=== PATIENT | female | born 1970 | race Caucasian/White ===

== ENCOUNTER → 2024-05-08 06:34 | Outpatient (REF) | payer BC, SELFPAY ==
[2024-05-08 09:51] LABS: Urine Albumin Negative (Neg - Trace); Urine Bilirubin Negative (Negative); Urine Character Slightly Cloudy (Clear); Urine Color Yellow; Urine Glucose Negative (Negative); Urine Ketone Negative (Negative); Urine Leukocyte 1+ (Negative); Urine Nitrite Negative (Negative); Urine Occult Blood Negative (Negative); Urine Urobilinogen Negative (Neg - 1+)
[2024-05-08 09:55] LABS: % Basophils 0.5 % (0-2); % Eosinophils 1.5 % (0-6); % Immature Granulocytes 0.3 % (0-0.5); % Lymphocytes 24.9 % (20.5-51.1); % Monocytes 5.4 % (1.7-9.3); % Neutrophils 67.4 % (42.2-75.2); Absolute Eosinophils 0.1 10^3/uL (0-0.7); Absolute Lymphocytes 1.8 10^3/uL (1.2-3.4); Absolute Monocytes 0.4 10^3/uL (0.1-0.6); Hematocrit 39.8 % (37.0-47.0); Hemoglobin 13.2 g/dL (12.0-16.0); Mean Corp Hgb Conc. 33.2 g/dL (33.0-37.0); Mean Corpuscular Hgb 26.3 pg (27.0-31.0); Mean Corpuscular Volume 79.4 fL (81.0-99.0); Mean Platelet Volume 10.7 fL (7.4-10.4); Nucleated Red Blood Cells % 0 %; Platelet Count 322 10^3/uL (130-400); Red Blood Cell Count 5.01 10^6/uL (4.20-5.40); Red Cell Dist. Width 13.6 % (11.5-14.5); White Blood Cell Count 7.4 10^3/uL (4.8-10.8)
[2024-05-08 10:05] LABS: Urine Squamous Cell >30 /LPF (Few)
[2024-05-08 10:06] LABS: Urine Bacteria Moderate (Negative)
[2024-05-08 10:08] LABS: Urine Red Blood Cell None Seen /HPF (0-2)
[2024-05-08 10:43] LABS: Free T4 1.21 ng/dl (0.78-2.19)
[2024-05-08 10:53] LABS: ALT (SGPT) 30 U/L (0-35); AST (SGOT) 34 U/L (14-36); Albumin 4.1 g/dl (3.5-5.0); Alkaline Phosphatase 56 U/L (38-126); Blood Urea Nitrogen 10 mg/dl (7-17); Calcium 8.7 mg/dl (8.4-10.2); Carbon Dioxide 22 mmol/L (22-30); Chloride 102 mmol/L (98-107); Glucose 105 mg/dl (70-99); HDL Cholesterol 49 mg/dl; Iron 120 ug/dl (37-170); LDL Cholesterol, Calculated 96 mg/dl; Potassium 4.6 mmol/L (3.5-5.1); Sodium 134 mmol/L (135-145); Total Bilirubin 0.2 mg/dl (0.2-1.3); Total Cholesterol 184 mg/dl (50-199); Total Protein 6.8 g/dl (6.3-8.2); Triglyceride 197 mg/dl (10-149); Very Low Density Lipoprotein 39 mg/dl (0-30); eGFR > 60.00
[2024-05-08 10:57] LABS: TSH 1.32 uIU/ml (0.47-4.68)
[2024-05-08 11:02] LABS: Percent Saturation 33 % (20-50); Total Iron Binding Capacity 355 ug/dl (265-497)
[2024-05-08 11:46] LABS: Ferritin 84.2 ng/ml (11.1-264.0)
[2024-05-08 12:17] LABS: Folate 10.9 ng/ml (2.76-20); Vitamin B12 339 pg/ml (239-931)
== END ==
LOC: HWLAB 06:34
PROVIDERS: ATTENDING PHYSICIAN Nurse Practitioner Family
DX: F41.1 Generalized anxiety disorder (principal); E55.9 Vitamin D deficiency, unspecified; D64.9 Anemia, unspecified
CPT/HCPCS: 36415; 80053; 80061; 81003; 81015; 82306; 82607; 82728; 82746; 83540; 83550; 84439; 84443; 85025

== ENCOUNTER 2025-01-11 16:38 | Day surgery (SDC) | payer BC, SELFPAY ==
[2025-01-11 12:34] VITALS: BP 135/88
--- NOTE | 2025-01-11 12:57 | ED.GENMED ---
History of Present Illness
<Brianne Anderson PA-C - Last Filed: 01/11/25 16:21>
General
Chief Complaint: Chest Pain
Source: patient
Exam Limitations: none
Time Seen by Provider: 01/11/25 12:48
Nursing documentation reviewed up to this point in time: agreed with
History of Present Illness
History of Present Illness:
see MDM
Past History
<MABEL Levy Last Filed: 01/11/25 16:21>
Past History
ED Past Medical History: Psychiatric
Social History
Tobacco: Non-smoker
Alcohol: None
Review of Systems
<MABEL Levy Last Filed: 01/11/25 16:21>
Review of Systems
Allergies reviewed?: Yes
All Other Systems: Not applicable
Phy Exam
<MABEL Levy Last Filed: 01/11/25 16:21>
Physical Exam
Physical Exam:
GENERAL: Alert , in no apparent distress
EYE: pupils equal and reactive
NECK: Supple
ENT: o/p clr, mmm.
CARDIAC: Regular rate and rhythm .
LUNGS: Clear breath sounds bilaterally, no acute respiratory distress, no wheezes/rales/rhonchi
chest wall: mild sternal tenderness, normal skin inspection
ABDOMEN: Soft, moderate RUQ tendenress, epigastric tendenress, no r/g, no cvat, normal bowel sounds
NEUROLOGICAL: Alert and oriented, no focal neuro deficits
SKIN: Warm and dry, skin intact.
MUSCULOSKELETAL: No edema, well perfused. neg she's sign
neg she's sign
PSYCH: Normal and appropriate interaction.
Scores
<MABEL Levy Last Filed: 01/11/25 16:21>
Heart Score for Chest Pain Patients
STEMI patient?: No
History: Slightly or Non-Suspicious
ECG: Normal
Age: >45 - <65 years
Risk Factors: No Risk Factors
Troponin: </= Normal Limit
Heart Score for Chest Pain Patients: 1
Heart Score Risk: 2.5% MACE over next 6 weeks
<Marycarmen Dillon MD - Last Filed: 01/11/25 16:33>
Heart Score for Chest Pain Patients
Heart Score for Chest Pain Patients: 1
Heart Score Risk: 2.5% MACE over next 6 weeks
Course
<Brianne Anderson PA-C - Last Filed: 01/11/25 16:21>
Orders/Labs/Results
Orders:
Orders
01/11/25 12:32
Electrocardiogram (*1) Urgent
Reason for Study: Chest Pain
EKG- Treatment ONCE
01/11/25 13:10
Famotidine [Pepcid] 20 mg IV NOW STA
Ketorolac [Toradol] 30 mg IV NOW STA
US Abdomen Complete/Upper Urgent
Comment:
Reason For Exam: upper abd pain RUQ tend
01/11/25 13:11
Complete Blood Count/With Diff Urgent
Comprehensive Metabolic Panel Urgent
Lipase Urgent
Troponin I Urgent
CR Chest - 2 Views Urgent
Comment:
Reason For Exam: chest heaviness
01/11/25 13:13
Add On- LAB Urgent
Tests Added?: lipase
01/11/25 15:58
Ampicillin/Sulbactam 3 G [Unasyn] 3 gm 0.9% Sodium Chloride 100 ml [Nss] 100 ml IV NOW
01/11/25 16:20
Admit/Transfer Patient As Directed
Co-Sign Provider:
Level of Care: Observation services
Assign to:: Medical/Surgical
Physician / Group: general surgery/ricky
Diagnosis: acute cholecystitis
01/11/25 16:21
PRN Pain Medication Management As Directed
May give lesser potent ordered pain med per pt: Yes
preference::
Protocol:: Medication orders for pain may be administered in a
manner that supports deferring to patient preference
when the pt is:
- Requesting an ordered lesser potent pain medication.
Least to most potent pain medications are defined
as: acetaminophen < NSAID < tramadol < opioids
(morphine, oxycodone, hydromorphone).
- Requesting a lesser dose of the same medication IF
ORDERED.
- Requesting a less intrusive route of administration
if both routes are prescribed by the provider (PO <
IV).
01/11/25 16:22
Code Status As Directed
Resuscitation Status: Full Code
01/11/25 16:27
Ampicillin/Sulbactam 3 G [Unasyn] 3 gm 0.9% Sodium Chloride 100 ml [Nss] 100 ml IV NOW
Abnormal Lab Results
01/11/25
13:11
WBC 11.6 H 10^3/uL
(4.8-10.8)
MCV 77.6 L fL
(81.0-99.0)
MPV 10.9 H fL
(7.4-10.4)
Absolute Neuts (auto) 9.8 H 10^3/uL
(1.4-6.5)
Neutrophils % 83.9 H %
(42.2-75.2)
Lymphocytes % 10.5 L %
(20.5-51.1)
Sodium 132 L mmol/L
(135-145)
Glucose 118 H mg/dl
(70-99)
Calcium 10.4 H mg/dl
(8.4-10.2)
01/11/25 13:11
01/11/25 13:11
Vital Signs
Initial and Last Documented VS:
Initial Vital Signs
Temp Pulse Resp BP Pulse Ox
98.1 F 60 16 135/88 100
01/11/25 12:34 01/11/25 12:34 01/11/25 12:34 01/11/25 12:34 01/11/25 12:34
Last Documented Vital Signs
Temp Pulse Resp BP Pulse Ox
98.1 F 75 18 143/82 98
01/11/25 12:34 01/11/25 16:08 01/11/25 16:08 01/11/25 16:08 01/11/25 16:08
<Marycarmen Dillon MD - Last Filed: 01/11/25 16:33>
Orders/Labs/Results
Orders:
Orders
01/11/25 12:32
Electrocardiogram (*1) Urgent
Reason for Study: Chest Pain
EKG- Treatment ONCE
01/11/25 13:10
Famotidine [Pepcid] 20 mg IV NOW STA
Ketorolac [Toradol] 30 mg IV NOW STA
US Abdomen Complete/Upper Urgent
Comment:
Reason For Exam: upper abd pain RUQ tend
01/11/25 13:11
Complete Blood Count/With Diff Urgent
Comprehensive Metabolic Panel Urgent
Lipase Urgent
Troponin I Urgent
CR Chest - 2 Views Urgent
Comment:
Reason For Exam: chest heaviness
01/11/25 13:13
Add On- LAB Urgent
Tests Added?: lipase
01/11/25 15:58
Ampicillin/Sulbactam 3 G [Unasyn] 3 gm 0.9% Sodium Chloride 100 ml [Nss] 100 ml IV NOW
01/11/25 16:20
Admit/Transfer Patient As Directed
Co-Sign Provider:
Level of Care: Observation services
Assign to:: Medical/Surgical
Physician / Group: general surgery/ricky
Diagnosis: acute cholecystitis
01/11/25 16:21
PRN Pain Medication Management As Directed
May give lesser potent ordered pain med per pt: Yes
preference::
Protocol:: Medication orders for pain may be administered in a
manner that supports deferring to patient preference
when the pt is:
- Requesting an ordered lesser potent pain medication.
Least to most potent pain medications are defined
as: acetaminophen < NSAID < tramadol < opioids
(morphine, oxycodone, hydromorphone).
- Requesting a lesser dose of the same medication IF
ORDERED.
- Requesting a less intrusive route of administration
if both routes are prescribed by the provider (PO <
IV).
01/11/25 16:22
Code Status As Directed
Resuscitation Status: Full Code
01/11/25 16:27
Ampicillin/Sulbactam 3 G [Unasyn] 3 gm 0.9% Sodium Chloride 100 ml [Nss] 100 ml IV NOW
Abnormal Lab Results
01/11/25
13:11
WBC 11.6 H 10^3/uL
(4.8-10.8)
MCV 77.6 L fL
(81.0-99.0)
MPV 10.9 H fL
(7.4-10.4)
Absolute Neuts (auto) 9.8 H 10^3/uL
(1.4-6.5)
Neutrophils % 83.9 H %
(42.2-75.2)
Lymphocytes % 10.5 L %
(20.5-51.1)
Sodium 132 L mmol/L
(135-145)
Glucose 118 H mg/dl
(70-99)
Calcium 10.4 H mg/dl
(8.4-10.2)
01/11/25 13:11
01/11/25 13:11
Vital Signs
Initial and Last Documented VS:
Initial Vital Signs
Temp Pulse Resp BP Pulse Ox
98.1 F 60 16 135/88 100
01/11/25 12:34 01/11/25 12:34 01/11/25 12:34 01/11/25 12:34 01/11/25 12:34
Last Documented Vital Signs
Temp Pulse Resp BP Pulse Ox
98.1 F 75 18 143/82 98
01/11/25 12:34 01/11/25 16:08 01/11/25 16:08 01/11/25 16:08 01/11/25 16:08
<Brianne Anderson PA-C - Last Filed: 01/11/25 16:21>
MDM/Problems Addressed
Differential Diagnosis Includes:
see MDM
MDM/Problems Addressed:
Note:
CHIEF COMPLAINT(S)
Chest pressure described as a choking sensation around the chest.
HISTORY OF PRESENT ILLNESS
The patient 54 y/o a female, presented with complaints of chest pressure that began recently. She described the sensation as feeling like pressure/tightness in her chest. it woke her from sleep around 10 pm lsat night and has been present since, but
The discomfort is waxing and waning in intensity. She noted that the pain is tender to the touch in the chest area and stated, 'Yeah, it was kind of feeling like somebody was doing a chokehold around my chest.'
She associated the discomfort with symptoms similar to heartburn or the presence of ulcers, despite not having a history of stomach issues. There was a report of some abdominal tenderness, a desire to vomit, nausea, sweating, and a minor fever,
described as, 'I feel like i need to burp.'
The patient stated the pressure worsened while lying down, but not with movement or physical exertion. She denied similar chest discomfort episodes in the past. The patient did not experience a history of palpitations or visits to a chief administrative officer and
is not on blood pressure medication. She takes estradiol orally for hormone replacement.
The patient reported the discomfort occurred at rest and did not relate to deep breathing or shortness of breath.
she has not had any exertioanl sypmptoms, leg swelling, leg pain, h/o recent surgery or travel
she is on oral estrogen therapy
SOCIAL DETERMINANTS AFFECTING HEALTH
The patient denied recent alcohol consumption and did not report any recent long-distance travel.
MEDICATIONS
Estradiol, oral, for hormone replacement therapy.
PHYSICAL EXAM
GENERAL: Alert , in no apparent distress
EYE: pupils equal and reactive
NECK: Supple
ENT: o/p clr, mmm.
CARDIAC: Bradycardic 50s, no murmur
Chest wall slightly tender sternum
LUNGS: Clear breath sounds bilaterally, no acute respiratory distress, no wheezes/rales/rhonchi
ABDOMEN: Soft, moderate right upper quadrant and epigastric tenderness, positive Joseph sign, no r/g, no cvat, normal bowel sounds
NEUROLOGICAL: Alert and oriented, no focal neuro deficits
SKIN: Warm and dry, skin intact.
MUSCULOSKELETAL: No edema, well perfused. neg she's sign
PSYCH: Normal and appropriate interaction.
PLAN
- Administration of pain relief and gastrointestinal treatment with toradol, compazine, and famotidine for symptom relief.
- Perform cardiac enzyme testing to rule out myocardial infarction.
- Conduct ultrasound imaging to assess gallbladder function and exclude cholecystitis.
DIFFERENTIAL DIAGNOSIS
The Differential Diagnosis includes, in no particular order and is not limited to:
1. Gastroesophageal reflux disease
2. Cholecystitis
3. Musculoskeletal chest pain
4. Peptic ulcer disease
5. Myocardial ischemia
6. Costochondritis
7. Panic attack
8. Atypical angina
9. Pulmonary embolism
10. Esophageal spasm
01/11/25 - 15:58
The patients blood work returns normal, including liver markers and heart enzyme. However, ultrasound reveals multiple gallstones and a thickened gallbladder wall, suggesting potential infection. The patient is notably tender upon examination and
exhibits nausea with reduced appetite, consistent with gallbladder issues. Consulted with Dr. Olmos, the on-call surgeon, who may recommend cholecystectomy due to symptomatic gallstones and signs of inflammation. Diet modification could be
considered, but the combination of thickened gallbladder wall and tenderness increases concern for infection, necessitating surgical evaluation.
1620: pt will come to surgery service
<Brianne Anderson PA-C - Last Filed: 01/11/25 16:21>
*Pulse Oximetry
SaO2: 100
Oxygen Mode of Delivery: Room air
Patient hypoxic: no (100)
*Critical Care Note
Total Time (30-74mins, 75-104mins- exclusive of procedures): Not Applicable
ED Attending Note
<Brianne Anderson PA-C - Last Filed: 01/11/25 16:21>
-
Portions of this chart may have been created with voice recognition software.� Occasional wrong word or��sound alike� substitutions may have occurred due to the inherent limitations of voice recognition software.
<Marycarmen Dillon MD - Last Filed: 01/11/25 16:33>
ED Attending Note
Patient seen and examined by attending physician: Yes
I performed the substantive portion of visit, reviewed & personally made and approve the management plan that is documented in note by myself or DIPESH.: Yes
ED Attending Note:
This patient is a 54-year-old female who notes at around midnight last night she developed lower chest/epigastric discomfort which continues upon arrival here. She took Tums without relief of symptoms. She also noted discomfort worse in the supine
position, not activity related. No associated dyspnea, and pain is not pleuritic in nature. On exam, moderate right upper quadrant tenderness to palpation, no rate rebound or guarding. Mild leukocytosis noted, LFT panel unremarkable, ultrasound
consistent with acc. surgery consulted, jakob admission for cholecystectomy.
Discharge Plan
Departure
Patient Disposition: Admit
Date of Disposition: 01/11/25
Time of Disposition: 15:45
Admit to: Med/Surg
Admit to doctor: ricky
Presentation/result/management discussed w/ accepting MD/DO: ricky
Patient with high blood pressure during this ER visit?: No
Condition: Fair
Covid-19: Not Applicable
Discharge Problem:
Acute calculous cholecystitis
Prescriptions:
No Action
cyanocobalamin (vitamin B-12) 1,000 mcg Tablet
1,000 mcg PO DAILY
Theragen Tablet
1 tab PO DAILY
estradiol-norethindrone acet [Mimvey] 1-0.5 mg tablet
1 tab PO DAILY
acetaminophen 500 mg Tablet
1,000 mg PO DAILYPRN PRN (Reason: mild pain)
citalopram 20 mg tablet
20 mg PO DAILY
calcium carbonate [Calcium 500] 500 mg calcium (1,250 mg) Tablet
500 mg PO DAILY
calcium carbonate [Tums] 200 mg calcium (500 mg) Tablet,Chewable
400 mg PO DAILYPRN PRN (Reason: reflux)
cholecalciferol (vitamin D3) 25 mcg (1,000 unit) Tablet
25 mcg PO DAILY
Visbiome 112.5 billion cell Capsule
1 cap PO DAILY
Referrals:
Yi Pisano [facility]ER [Family Provider]
Interventions
Interventions:
*Risk Screen - Suicide Last Done: 01/11/25 12:34
*General Assessment Last Done: 01/11/25 16:04
*Neglect/Abuse Screening Last Done: 01/11/25 12:34
*ED COVID-19 Vaccine History Last Done: 01/11/25 14:17
*ED Influenza Vaccine History Last Done: 01/11/25 14:17
ED- Cardiac Assessment Last Done: 01/11/25 14:16
Discharge Date and Time
Print Language: GREENLANDIC
[2025-01-11 13:18] LABS: Hematocrit 38.5 % (37.0-47.0); Hemoglobin 13.4 g/dL (12.0-16.0); Mean Corp Hgb Conc. 34.8 g/dL (33.0-37.0); Mean Corpuscular Volume 77.6 fL (81.0-99.0); Nucleated Red Blood Cells % 0 %; Platelet Count 332 10^3/uL (130-400); Red Cell Dist. Width 13.8 % (11.5-14.5)
[2025-01-11] MEDS: PEPCID 20 MG IV (13:24)
[2025-01-11] MEDS: TORADOL 30 MG IV (13:25)
[2025-01-11 13:32] LABS: ALT (SGPT) 25 U/L (0-35); AST (SGOT) 31 U/L (14-36); Albumin 4.4 g/dl (3.5-5.0); Alkaline Phosphatase 49 U/L (38-126); Blood Urea Nitrogen 9 mg/dl (7-17); Calcium 10.4 mg/dl (8.4-10.2); Carbon Dioxide 23 mmol/L (22-30); Chloride 104 mmol/L (98-107); Glucose 118 mg/dl (70-99); Lipase 82 U/L (23-300); Potassium 4.1 mmol/L (3.5-5.1); Sodium 132 mmol/L (135-145); Total Protein 7.3 g/dl (6.3-8.2); eGFR > 60.00
[2025-01-11 13:49] LABS: Troponin I < 0.012 ng/ml
[2025-01-11 16:02] VITALS: BMI 34.8
[2025-01-11 16:07] VITALS: BP 143/82
[2025-01-11 16:08] VITALS: BP 143/82
--- NOTE | 2025-01-11 16:25 | HPS.HSE ---
Family Physician
-
Family Physician: Yi Pisano
Chief Complaint
-
RUQ pain with n/v
History of Present Illness
Ms Penny is a 54 yo female with a h/o tonsillectomy who presents with epigastric and RUQ pain which began last night around midnight awakening her from sleep with associated dyspepsia. She notes having pizza for dinner around 5pm prior to this
episode. As the night went on, her pain worsened and she had sensation like she had to belch but was unable to find relief. She tried Tums throughout the night and into this morning x9 tablets without any relief. She denies prior episodes. She
received a dose of Toradol in the ED and reports her pain has improved after this but is still mildly present. On exam, RUQ tenderness with +victoria's sign present. She denies fevers or chills but did feel clammy today when she came to work and her
colleagues encouraged her to present to the ED for evaluation.
Medical History
Past Medical History
Past Medical History: Reports Psychiatric (depression/anxiety on Celexa)
Past Surgical History: Reports Tonsilectomy and Other (no prior colonoscopy, negative cologuard)
Social History
Tobacco: Non-smoker
Alcohol: Occasional
Employment: Employed ([employer])
Family History
Family History: Not pertinent
Allergies / Home Medications
Allergies reflects when Allergies were last updated in [facility].
Home Medications with original date entered in [facility]
Allergy/Medication List:
Patient Allergies
Allergy/AdvReac Type Severity Reaction Status Date / Time
No Known Allergies Allergy Verified 01/11/25 16:04
�Medication �Instructions �Recorded �Confirmed �Type
Lactobac no.2-Bifidobac no.1-S. 1 cap PO DAILY 01/11/25 01/11/25 History
thermo 112.5 billion cell capsule
(Visbiome)
acetaminophen 500 mg tablet 1,000 mg PO DAILYPRN PRN mild pain 01/11/25 01/11/25 History
calcium carbonate 500 mg PO DAILY 01/11/25 01/11/25 History
calcium carbonate (Tums) 400 mg PO DAILYPRN PRN reflux 01/11/25 01/11/25 History
cholecalciferol (vitamin D3) 25 25 mcg PO DAILY 01/11/25 01/11/25 History
mcg (1,000 unit) tablet
citalopram 20 mg tablet 20 mg PO DAILY 01/11/25 01/11/25 History
cyanocobalamin (vitamin B-12) 1,000 mcg PO DAILY 01/11/25 01/11/25 History
1,000 mcg tablet
estradiol-norethindrone acet 1 1 tab PO DAILY 01/11/25 01/11/25 History
mg-0.5 mg tablet (Mimvey)
therapeutic multivitamin 1 tab PO DAILY 01/11/25 01/11/25 History
Review of Systems
-
History Source: Patient
A 12 point ROS was completed and negative except as noted: Yes
Physical Exam
Vital Signs
Vital Signs
Temp Pulse Resp BP Pulse Ox
98.1 F 75 18 143/82 98
01/11/25 12:34 01/11/25 16:08 01/11/25 16:08 01/11/25 16:08 01/11/25 16:08
Physical Exam
General: Well Developed and Well Nourished
HEENT: NormoCephalic and Moist mucous membranes
Respiratory: Non Labored Respirations
GI: Soft, Non Distended and Tender (RUQ, +Victoria's)
Skin: Warm and Dry
Neuro: Awake, Alert and AO x 3
Psych: Calm
Laboratory Results
-
01/11/25 13:11
01/11/25 13:11
Laboratory Results
Total Bilirubin 1.0 mg/dl (0.2-1.3) 01/11/25 13:11
AST 31 U/L (14-36) 01/11/25 13:11
ALT 25 U/L (0-35) 01/11/25 13:11
Alkaline Phosphatase 49 U/L (38-126) 01/11/25 13:11
Troponin I < 0.012 ng/ml 01/11/25 13:11
Lipase 82 U/L (23-300) 01/11/25 13:11
Data Reviewed
-
Ultrasound: Image Personally Visualized and interpreted, Report Reviewed by me, Discussed with Physician, Discussed with Nurse and Discussed with Patient
Lab Data: Labs Reviewed by me, Discussed with Physician and Discussed with Patient
Old Records: Reviewed
Impression/Plan
-
IMPRESSION:
54 yo female presenting with epigastric/RUQ pain with dyspepsia since midnight after eating pizza for dinner last night. Afebrile. VSS. Mild leukocytosis. LFT's wnl. Lipase WNL. US with cholelithiasis and diffuse gallbladder wall thickening with
intramural edema and positive victoria's sign. +victoria's on exam with RUQ tenderness in keeping with acute calculous cholecystitis.
PLAN:
Admit to surgery service
ABX given in the Ed. Will continue IV abx with zosyn q6h
Clears as tolerated and NPO after MN for OR
Will plan laparoscopic cholecystectomy tomorrow am
Analgesics/antiemetics prn
SCDs for vte ppx
[2025-01-11] MEDS: UNASYN IV (16:53)
[2025-01-11 17:00] VITALS: BP 103/91
--- NOTE | 2025-01-11 17:01 | EDCM ---
CM reviewed chart and met with pt bedside in ED, lives with her son in split level home, [address], 4 steps inside to Bedroom and full bath.
Independent in ADLs, personal care and ambulation at baseline. No DME. Works at in Radiology.
OBS Letter reviewed and signed, copy left with pt.
Confirms prescription coverage.
No hx VN or SNF
PCP: Yi Pisano
Pharmacy: [facility] [address]
Anticipate discharge home, CM will continue to follow for any discharge planning needs.
[2025-01-11 17:16] VITALS: BP 152/78
[2025-01-11 17:17] VITALS: BMI 34.3
[2025-01-11] MEDS: LOVENOX 40 MG SC (18:06)
[2025-01-11] MEDS: ZOSYN 50 IV ×2 (18:06→23:57)
[2025-01-11] MEDS: PROTONIX 40 MG PO (18:06)
[2025-01-11] MEDS: NSS 1000 IV (18:06)
--- NOTE | 2025-01-11 18:08 | PTCARENOTE ---
Received patient from ED via stretcher around 1715 in stable condition. Patient states pain 3/10 RUQ. Patient accompanied by son. Patient oriented to room. Call kee in reach.
[2025-01-11 22:36] VITALS: BP 133/72
[2025-01-12] VITALS (13 sets, daily range): BP systolic 100–121; BP diastolic 59–71
[2025-01-12] MEDS: ZOSYN 50 IV (05:43)
[2025-01-12] MEDS: NSS 1000 IV (05:45)
[2025-01-12 06:22] LABS: Hematocrit 36.4 % (37.0-47.0); Hemoglobin 12.3 g/dL (12.0-16.0); Mean Corp Hgb Conc. 33.8 g/dL (33.0-37.0); Mean Corpuscular Volume 77.9 fL (81.0-99.0); Nucleated Red Blood Cells % 0 %; Platelet Count 284 10^3/uL (130-400); Red Cell Dist. Width 14.0 % (11.5-14.5)
[2025-01-12 06:26] LABS: INR 1.05; PT 14.0 Sec (11.4-14.6)
[2025-01-12 06:27] LABS: APTT 29.3 Sec (23.4-35.0)
[2025-01-12 06:45] LABS: ALT (SGPT) 22 U/L (0-35); AST (SGOT) 29 U/L (14-36); Albumin 3.7 g/dl (3.5-5.0); Alkaline Phosphatase 40 U/L (38-126); Blood Urea Nitrogen 9 mg/dl (7-17); Calcium 8.9 mg/dl (8.4-10.2); Carbon Dioxide 24 mmol/L (22-30); Chloride 107 mmol/L (98-107); Estimated Creatinine Clearance 72 ml/min; Glucose 94 mg/dl (70-99); Potassium 4.5 mmol/L (3.5-5.1); Sodium 137 mmol/L (135-145); Total Protein 6.3 g/dl (6.3-8.2); eGFR > 60.00
[2025-01-12] MEDS: CELEXA 20 MG PO (09:39)
[2025-01-12] MEDS: ZOSYN IV (14:07)
--- NOTE | 2025-01-12 14:17 | W.IMMPOSTOP ---
Addendum entered and electronically signed by Arthur Olmos MD 01/12/25 14:26:
Son was called, left a voicemail with the update
Original Note:
Surgical Immed Post Op Note
-
Primary Surgeon: Arthur Olmos MD
Assisting Surgeon: Jeanne Freeman NP
Pre-op Diagnosis: Acute cholecystitis
Post-op Diagnosis: Acute cholecystitis
Procedure Performed: Laparoscopic cholecystectomy
Anesthesia Type: General
Specimen / Cultures: Gallbladder
Estimated Blood Loss: 15 mL
Complications: None
Operative Findings: Inflamed and edematous gallbladder; obtained critical view of safety and clipped cystic duct and cystic artery; uneventful
Dispo�okay for low-fat diet; if tolerating, possible DC this afternoon versus tomorrow
--- NOTE | 2025-01-12 14:18 | OR.RPT ---
Operative Report
Operative Report
DATE OF OPERATION: 01/12/2025
SURGEON: Arthur Olmos MD
PREOPERATIVE DIAGNOSIS: Acute cholecystitis
POSTOPERATIVE DIAGNOSIS: Acute cholecystitis
OPERATION: Laparoscopic cholecystectomy
ASSISTANTS:
1. Jeanne Freeman NP
ANESTHESIA: General
ESTIMATED BLOOD LOSS: 15 mL
FINDINGS:
1. Inflamed and edematous gallbladder
2. Obtained critical view of safety prior to clipping and dividing the cystic duct and cystic artery
SPECIMENS:
1. Gallbladder
DRAINS: None
COMPLICATIONS: No immediate complications.
INDICATIONS: The patient is a 54-year-old female who presented with 1 day of RUQ abdominal pain. Her ultrasound showed gallbladder wall thickening with pericholecystic fluid, consistent with cholecystitis. Therefore, I recommended a
cholecystectomy. The operation was discussed with the patient in detail, including the risks, benefits and alternatives. Risks described included, but not limited to, bleeding, infection, damage to nearby structures (i.e., common bile duct, liver,
bowel), conversion to open and anesthetic risks. The patient understood and agreed to proceed. The consent was signed and placed in the chart.
PROCEDURE IN DETAIL: The patient was taken to the operating room and placed on the operating table in supine position. Sequential compression devices were placed bilaterally. General anesthesia was then induced and the patient was intubated without
complication. The patient was secured to the bed with 2 seatbelts and the arms were secured to the armboards. A footboard was placed in case steep reverse Trendelenburg positioning becomes necessary. Anesthesia placed an orogastric tube. Zosyn
was given pre-incision. The abdomen was prepped and draped in the usual sterile fashion. A time-out was performed verifying the correct patient, procedure, operative site, positioning, and special equipment.
An 11 blade scalpel was used to create a stab incision at Jaimes's point. The Veress needle was carefully inserted. After three clicks, insufflation was attached to the Veress needle and an opening pressure of less than 8 mmHg was noted. The
abdomen was insufflated to a pressure of 15 mmHg. The patient tolerated insufflation well. Next, the 11 blade scalpel was used to create a curvilinear incision supraumbilically. Using the 5-0 camera and the Optiview trocar, the first 5 mm port
was placed under direct visualization ensuring no injury to adjacent organs. A 5-30 camera was then connected and inserted, and the abdomen was inspected. No injury from initial trocar placement or Veress needle placement was noted. The
gallbladder was noted to be dilated and inflamed. Additional trocars were then inserted under direct visualization in the following locations: a 12 mm trocar in the right epigastrium just lateral to the falciform ligament and two 5 mm trocars along
the right costal margin in the anterior axillary line and mid-axillary line. The table was placed in reverse Trendelenburg position with the right side up.
A laparoscopic needle was used to aspirate bile from the gallbladder as it was too distended to be grasped. About 50mL of bile was aspirated. The dome of the gallbladder was grasped with a locking atraumatic grasper and retracted over the dome of
the liver. The infundibulum was also grasped with an atraumatic grasper and retracted toward the right lower quadrant to expose the triangle of Calot. The peritoneum was then scored and incised with electrocautery along the medial and lateral
margins of the gallbladder. Using a combination of hook cautery and blunt dissection, the cystic duct and cystic artery were identified and circumferentially dissected. The critical view of safety was achieved. The cystic duct and the cystic
artery were clipped and divided such that 4 clips remained on the cystic duct stump and 2 clips remained on the cystic artery stump.
The gallbladder was then dissected from its peritoneal attachments to the gallbladder fossa by electrocautery. There was noted to be pericholecystic fluid within this plane, consistent with cholecystitis. Prior to complete removal of the
gallbladder, the gallbladder fossa was closely evaluated. No liver injuries were identified and hemostasis was assured using electrocautery. The gallbladder was then placed in an endoscopic retrieval bag through the epigastric port and set to the
side. The gallbladder fossa was then irrigated with saline and suctioned. There was no evidence of bleeding from the gallbladder fossa or cystic artery or leakage of bile from the cystic duct stump. Then, the specimen was removed from the
epigastric port. Due to the size of the inflamed gallbladder, the fascia had to be stretched with a Demetria clamp. The gallbladder was passed off as specimen. The fascia of the epigastric port was closed with an 0 Vicryl simple interrupted stitch
using laparoscopic visualization and a suture passer. The remaining ports were removed under direct vision and no bleeding was noted from the trocar sites. The laparoscope was withdrawn and the umbilical trocar removed. The abdomen was allowed to
collapse. The port sites were injected with 30mL of 0.25% Marcaine with epinephrine mixed with 0.3mg of dexamethasone for local anesthesia. The skin was closed with subcuticular sutures of 4-0 Monocryl and Dermabond.
At this point, the procedure was complete. All needle, sponge and instrument counts were correct. The patient tolerated the procedure well. The patient was extubated without complication and was transferred to the recovery room in stable condition.
Of note, Jeanne Freeman, ARPITA, assistant to the vice president, was necessary during this procedure for traction, countertraction, and exploratory purposes. I was present for the entire duration of the case.
DICTATED BY: Arthur Olmos MD
[2025-01-12] MEDS: DILAUDID 0.25 MG IV (14:45)
--- NOTE | 2025-01-12 15:00 | PTCARENOTE ---
Pt received from the PACU via Bed. Transport was w/o incident. Pt is Awake and alert. Pt denies pain or nausea at this time. Pt with abd lap sites well approximated, no drainage noted at this time. VSS, Pt is afebrile. Pt instructed on plan of care.
Pt verbalized understanding of instructions. Call kee is within reach.
[2025-01-12] MEDS: PROTONIX 40 MG PO (17:41)
[2025-01-12] MEDS: LOVENOX 40 MG SC (17:41)
[2025-01-13 03:11] VITALS: BP 104/52
[2025-01-13] MEDS: NSS IV (05:10)
[2025-01-13 07:35] VITALS: BP 108/69
[2025-01-13] MEDS: CELEXA 20 MG PO (07:46)
--- NOTE | 2025-01-13 10:34 | W.PN.CRS1 ---
Today's Communication / Plan
-
discharge
Assessment/Plan
-
POD#1 Laparoscopic cholecystectomy
no labs
vitals normal
-Tolerating a low fat diet
-Feeling much better today
-Having bowel function
-Okay for discharge from our standpoint. All d/c instructions discussed including medications, activity levels, and follow up. All questions addressed.
Subjective Data
Subjective Data
Date of Service: January 13, 2025
Patient states she feels much better. She denies nausea or vomiting. She has minimal pain. She is having gas and bowel movements.
Objective Data
-
Vital Signs
Temp Pulse Resp BP Pulse Ox
97.9 F 83 15 108/69 98
01/13/25 07:35 01/13/25 07:35 01/13/25 07:35 01/13/25 07:35 01/13/25 07:35
Intake & Output
01/12/25 01/13/25 01/14/25
06:59 06:59 06:59
Intake Total 960 / 960 1320 / 1320
Balance 960 / 960 1320 / 1320
Intake:
Oral fluids 480 / 480
IV fluids (Total) 860 / 860 840 / 840
normosol 200 / 200
IV piggybacks 100 / 100
Other:
Number of approximated MODERATE 3 2
amounts of urine
Number of approximated LARGE 1
amounts of urine
Lab Results
01/12/25 05:37
01/12/25 05:37
Physical Exam
-
General: No Acute Distress and AOx3
Abdomen: Soft, Non Distended and Non Tender
Skin: Warm and Dry
Incision: Clear, Dry, Intact
[2025-01-13] MEDS: TYLENOL 650 MG PO (10:47)
[2025-01-13 11:16] VITALS: BP 126/72
--- NOTE | 2025-01-13 13:32 | CM ---
Patient has been medically cleared for discharge to home with no additional skilled services. Patient arranged for transport home.
== END 2025-01-13 12:34 | disposition home or self-care (01) ==
LOC: SDS 16:38
PROVIDERS: Physician Assistant; Registered Nurse; ATTENDING PHYSICIAN Surgery; EMERGENCY PHYSICIAN Emergency Medicine; FAMILY PHYSICIAN Nurse Practitioner Family
DX: K80.00 Calculus of gallbladder with acute cholecystitis without obstruction (principal)
CPT/HCPCS: 47562; 71046; 76700; 80053; 83690; 84484; 85025; 85610; 85730; 86850; 86900; 86901; 88304; 93005; 96365; 96375; 99285; G0378